=== PATIENT | male | born 1955 | race Caucasian/White ===

== ENCOUNTER 2021-04-17 10:37 | Emergency (ER) | payer BC ==
[~2021-04-17] VITALS: Ht 167.6 cm; Wt 94.4 kg
--- NOTE | 2021-04-17 11:26 | RAD ---
AP chest. HISTORY: Short of breath AP view was taken of the chest. Patient's taken a poor inspiration. There are mild interstitial flores es in the lungs from mild interstitial infiltrates or edema. Crowding of the vessels from poor inspir ation could be a part of the pattern. PA and lateral views with better inspiration would be of benefi t. IMPRESSION: 1. Mild interstitial changes, possible infiltrates or edema. Electronically signed by: Chai Pete MD (04/17/2021 11:23 AM) [id number]
--- NOTE | 2021-04-17 11:28 | PHYS DOC ---
Past History Past Medical History: Diabetes, Hypertension Additional Past Medical Histor: Cardiac Past Surgical History: No Surgical History Smoking: Non-smoker Alcohol Use: None Drug Use: None General Adult EDM: Chief Complaint: WEAKNESS/GENERALIZED HPI: HPI: 66-year-old male presents with mild diarrhea, intermittent cough, and body aches. Patient was at a a few days ago. For the last 3 days he has been having body aches and a cough. His diarrhea has improved today. He is not vaccinated for COVID-19. His has similar but slightly worsened symptoms. Patient denies significant shortness of breath or chest pain. He has not had a fever at home. His headache is mild. Review of Systems: Review of Systems: Constitutional: Body aches. Denies fever or chills Eyes: Denies change in visual acuity HENT: Runny nose Respiratory: Cough without shortness of breath Cardiovascular: Denies chest pain or edema GI: Diarrhea. Denies abdominal pain, nausea, vomiting, bloody stools. : Denies dysuria Musculoskeletal: Denies back pain or joint pain Integument: Denies rash Neurologic: Denies headache, focal weakness or sensory changes Endocrine: Denies polyuria or polydipsia Lymphatic: Denies swollen glands Psychiatric: Denies depression or anxiety Allergies: Allergies: Allergies Coded Allergies Type Severity Reaction Last Updated Verified No Known Drug Allergies 10/18/13 No Physical Exam: PE: Constitutional: Well developed, well nourished, no acute distress, non-toxic a ppearance. [] HENT: Normocephalic, atraumatic, bilateral external ears normal, oropharynx moist, no oral exudates, nose normal. [] Eyes: PERRLA, EOMI, conjunctiva normal, no discharge. [] Neck: Normal range of motion, no tenderness, supple, no stridor. [] Cardiovascular:Heart rate regular rhythm, no murmur [] Lungs & Thorax: Bilateral breath sounds clear to auscultation [] Abdomen: Bowel sounds normal, soft, no tenderness, no masses, no pulsatile masses. [] Skin: Warm, dry, no erythema, no rash. [] Back: No tenderness, no CVA tenderness. [] Extremities: No tenderness, no cyanosis, no clubbing, ROM intact, no edema. [] Neurologic: Alert and oriented X 3, normal motor function, normal sensory function, no focal deficits noted. [] Psychologic: Affect normal, judgement normal, mood normal. [] Current Patient Data: Vital Signs: Vital Signs Date Time Temp Pulse Resp B/P (MAP) Pulse Ox O2 Delivery O2 Flow Rate FiO2 04/17/21 10:50 98.2 68 16 126/48 95 Room Air EKG: EKG: [] Radiology/Procedures: Radiology/Procedures: [] Impressions: AP chest. HISTORY: Short of breath AP view was taken of the chest. Patient's taken a poor inspiration. There are mild interstitial changes in the lungs from mild interstitial infiltrates or edema. Crowding of the vessels from poor inspiration could be a part of the pattern. PA and lateral views with better inspiration would be of benefit. IMPRESSION: 1. Mild interstitial changes, possible infiltrates or edema. Electronically signed by: Chai Pete MD (04/17/2021 11:23 AM) [id number] DICTATED AND SIGNED BY: CHAI PETE MD DATE: 04/17/21 1122 CC: AMINATA IRIZARRY DO; MANUELA JETER ~MTH0 0 PA and lateral views of the chest. Comparison: 11:12 AM of the same day. Indication: Further evaluation of abnormal AP chest x-ray. Findings: The heart size is enlarged but stable. No pneumothorax or effusion. Persistent mild interstitial opacities. The bony structures are intact. Impression: 1. Persistent mild interstitial opacities suggest possible atypical infection. Electronically signed by: Lamine Hebert MD (04/17/2021 12:39 PM) [id number] DICTATED AND SIGNED BY: LAMINE HEBERT MD DATE: 04/17/21 1238 CC: AMINATA IRIZARRY DO; MANUELA JETER ~MTH0 0 Heart Score: C/O Chest Pain: N/A Risk Factors: Risk Factors: DM, Current or recent (<one month) smoker, HTN, HLP, family history of CAD, obesity. Risk Scores: Score 0 - 3: 2.5% MACE over next 6 weeks - Discharge Home Score 4 - 6: 20.3% MACE over next 6 weeks - Admit for Clinical Observation Score 7 - 10: 72.7% MACE over next 6 weeks - Early Invasive Strategies Course & Med Decision Making: Course & Med Decision Making Pertinent Labs and Imaging studies reviewed. (See chart for details) The patient's labs are unremarkable except for an elevated creatinine of 2.3. I do not have any recent baseline for comparison. He appears well. His chest x- ray suggest possible infiltrate. A dedicated PA and lateral was ordered. There continues to be evidence of atypical pneumonia. This is likely Covid but I will treat him with azithromycin. He is comfortable on room air. He is stable for discharge at this time. [] Dragon Disclaimer: Dragon Disclaimer: This electronic medical record was generated, in whole or in part, using a voice recognition dictation system. Departure Departure: Impression: Primary Impression: Suspected 2019 novel coronavirus infection Disposition: HOME / SELF CARE / HOMELESS Condition: STABLE Referrals: MANUELA JETER (PCP) Additional Instructions: covidYou have been tested for or diagnosed with COVID-19. It is an infection caused by a new type of coronavirus. COVID-19 will cause cold-like or mild flu symptoms in most. It can cause more severe symptoms like problems breathing in some. There is no treatment for COVID-19. The body will clear the infection over time. Self-care will help to ease discomfort. Steps to Take: Self-Care Rest as needed. Healthy habits may help you feel better. Steps include: Choose healthy foods including fruits and vegetables. Drink water throughout the day. Get plenty of sleep each night. If you smoke, try to quit. It may ease breathing. Avoid alcohol. Keep Others Healthy The virus can spread to others. Droplets are released every time you sneeze or cough. The droplets can get into the mouth, nose, or eyes of people near you and lead to infection. To lower the chances of spreading COVID-19 to others: Stay at home until your doctor has said it is safe to leave. If you tested positive this will mean staying isolated until both of the following are true: At least 7 days have passed since the start of illness. You are free of fever for at least 72 hours without the use of medicine. During this time: - Avoid public areas, events, or transportation. Do not return to work or school until your doctor has said it is safe to do so. - Call ahead if you need to go to a medical center. Let them know you may have COVID-19. It will help them guide you where to go. They may also ask you to wear a facemask when you come to the office. - If you call for emergency medical services, let them know you may have COVID- 19. While at home: - Try to avoid close contact with others. Stay about 6 feet away. - If possible, spend most of your time in a separate room from others. - Use a face mask if you will be in close contact with others such as sharing a room or vehicle. - Have someone wipe down common surfaces in the home. Use household flyer repairer every day on areas like doorknobs, counters, or sinks. - Cough or sneeze into a tissue. Throw the tissue away right after use. If a tissue is not available, cough or sneeze into your elbow. - Wash your hands often. Wash them after sneezing or coughing. Use soap and water and wash for at least 20 seconds. Alcohol based hand ultrasonic cleaner can be used if soap and water is not available. - Do not prepare food for others. Avoid sharing personal items like forks, spoons, or toothbrushes. - Avoid close contact with pets while you are sick. There is no evidence of the virus passing to pets. This is a safety step until more is known about this virus. Isolation can be frustrating. Social interaction can help. Keep in touch with friends and family through phone and tech options. You can still interact with others in your home, just keep a safe distance of about 6 feet. Follow-up: Your doctors office will check in with you to see if there are any changes in your health. You may be asked to keep track of symptoms to share with them. They will also let you know when you are clear to be in public again. Problems to Look Out For: Contact your doctor if your recovery is not going as you expect. Get emergency care if you have problems such as: - Trouble breathing - Nonstop chest pain or pressure - Changes in awareness, confusion, or problems waking - Lips or face have bluish color - Worsening of symptoms If you think you have an emergency, call for emergency medical services right away. As taken from [facility] Azithromycin (AZITHROMYCIN TABLET) 250 Mg Tablet 250 MG PO DAILY for ANTI-BIOTIC for 4 Days, #4 TAB 0 Refills Prov: AMINATA IRIZARRY DO 04/17/21 AMINATA IRIZARRY DO Apr 17, 2021 11:27
[2021-04-17 11:46] LABS: BASO % 0 % (0-3); EOS % 0 % (0-3); HEMATOCRIT 39.1 % (39.0-53.0); HEMOGLOBIN 12.9 g/dL (13.0-17.5); LYMPH # 1.2 x10^3/uL (1.0-4.8); LYMPH % 17 % (24-48); MEAN CORPUSCULAR HEMOGLOBIN 28 pg (25-35); MEAN CORPUSCULAR HGB CONC 33 g/dL (31-37); MEAN CORPUSCULAR VOLUME 87 fL (79-100); MONO # 0.7 x10^3/uL (0.0-1.1); MONO % 9 % (0-9); NEUT # 5.5 x10^3uL (1.8-7.7); NEUT % 74 % (31-73); PLATELET COUNT 222 x10^3/uL (140-400); RED BLOOD COUNT 4.52 x10^6/uL (4.30-5.70); WHITE BLOOD COUNT 7.4 x10^3/uL (4.0-11.0)
[2021-04-17 11:56] LABS: CALCIUM 8.6 mg/dL (8.5-10.1); CREATININE 2.3 mg/dL (0.7-1.3); GFR 28.5; POTASSIUM 4.4 mmol/L (3.5-5.1)
--- NOTE | 2021-04-17 11:59 | EKG ---
[address] [address] Test Date: 2021-04-17 Test Time: 11:49:55 Pat Name: SHAWNA MALHOTRA Department: Room: Gender: M Accounting Professional: KAVITHA : 1955 Requested By: AMINATA IRIZARRY Order Number: [id number] Reading MD: Measurements Intervals [place] Rate: 71 P: 22 WI: 160 QRS: -12 QRSD: 82 T: 47 QT: 374 QTc: 407 Interpretive Statements SINUS RHYTHM LEFTWARD AXIS INCOMPLETE RIGHT BUNDLE BRANCH BLOCK NO SPECIFIC ECG ABNORMALITIES RI6.02 No previous ECG available for comparison
[2021-04-17 12:02] LABS: ALBUMIN 3.4 g/dL (3.4-5.0); ALBUMIN/GLOBULIN RATIO 0.9 (1.0-1.7); TOTAL BILIRUBIN 0.6 mg/dL (0.2-1.0); TOTAL PROTEIN 7.1 g/dL (6.4-8.2)
[2021-04-17 12:23] LABS: BACTERIA,URINE 0 /HPF (0-FEW); BILIRUBIN,URINE NEG (NEG); CLARITY,URINE CLEAR; COLOR,URINE YELLOW; GLUCOSE,URINE NEG (NEG); HYALINE CASTS, URINE OCC /HPF; NITRITE,URINE NEG (NEG); RBC,URINE 0 /HPF (0-2); SQUAMOUS EPITHELIAL CELL,UR OCC /LPF; UROBILINOGEN,URINE 0.2 mg/dL (0.2 mg/dL)
--- NOTE | 2021-04-17 12:42 | RAD ---
PA and lateral views of the chest. Comparison: 11:12 AM of the same day. Indication: Further evaluation of abnormal AP chest x-ray. Findings: The heart size is enlarged but stable. No pneumothorax or effusion. Persistent mild interstitial opac ities. The bony structures are intact. Impression: 1. Persistent mild interstitial opacities suggest possible atypical infection. Electronically signed by: Lamine Hebert MD (04/17/2021 12:39 PM) [id number]
[2021-04-17] MEDS ORDERED: AZIT250T6 PO (12:51)
[2021-04-17] MEDS ORDERED: AZITHROMYCIN 250 MG TABLET. PO ONE (13:00)
[2021-04-17 13:43] VITALS: BP 128/51
--- NOTE | 2021-04-18 14:30 | NUR ---
IP: Informed pt of positive covid test and the need to quarantine x 10 days. Pt verbalized understanding.
== END 2021-04-17 13:45 | disposition home or self-care (01) ==
LOC: ER 10:37
DX: R19.7 Diarrhea, unspecified (principal); R05 Cough; E11.9 Type 2 diabetes mellitus without complications; I10 Essential (primary) hypertension; Z20.822 Contact with and (suspected) exposure to COVID-19
CPT/HCPCS: 71045; 71046; 80053; 81001; 84484; 85025; 93005; 99285; U0005